=== PATIENT | male | born 1945 | race Caucasian/White ===

== ENCOUNTER 2019-12-31 22:09 | Emergency (ER) | payer OTHER ==
[2019-12-31 22:50] LABS: Absolute Lymphocytes (CBC) 2.5 K/uL (0.7-4.9); Basophils % 0.7 % (0-1.3); Hematocrit 46.9 % (39.6-49.0); Lymphocytes % 21.8 % (15.3-44.8); MPV 7.6 fL (7.6-11.3); RBC Red Blood Cell Count 5.14 M/uL (4.33-5.43)
[2019-12-31] MEDS ORDERED: FAMOTIDINE 20 MG/2 ML VIAL IV ONE (22:58)
[2019-12-31 23:08] LABS: Albumin 3.8 g/dL (3.4-5.0); Bilirubin Direct 0.2 mg/dL (0-0.2); Bilirubin Total 0.7 mg/dL (0.2-1.0); Protein, Total 7.7 g/dL (6.4-8.2)
[2019-12-31] MEDS ORDERED: MORPHINE 2 MG/ML SYR ONE (23:17)
[2019-12-31] MEDS ORDERED: ONDANSETRON 4 MG/2 ML VIAL ONE (23:17)
--- NOTE | 2020-01-01 01:17 | EDPHYS ---
Physician Documentation [facility] Name: Peewee Real Age: 74 yrs Sex: Male : 1945 Arrival Date: 12/31/2019 Time: 22:13 Bed 6 Private MD: Bo Morris ED Physician Slim Ng HPI: 12/30 22:43 This 74 yrs old Male presents to ER via Ambulatory with complaints of mh7 Abdominal Pain. 22:43 The patient presents with abdominal pain in the upper abdomen. Onset: The mh7 symptoms/episode began/occurred yesterday. The symptoms do not radiate. Associated signs and symptoms: Pertinent positives: nausea and vomiting, Pertinent negatives: anorexia, blood in stools, chest pain, constipation, diarrhea, dysuria, fever, headache, hematuria, palpitations, shortness of breath, testicular pain, vomiting blood. The symptoms are described as intermittent, vague, waxing/waning. Modifying factors: The symptoms are alleviated by nothing, the symptoms are aggravated by nothing. Severity of pain: At its worst the pain was moderate today, in the emergency department the pain has improved moderately. Historical: - Allergies: 22:23 No Known Allergies; jd3 - Home Meds: 22:23 Lisinopril Oral [Active]; atorvastatin oral oral [Active]; jd3 - PMHx: 22:23 Hypertension; jd3 - PSHx: 22:23 None; jd3 - Immunization history:: Adult Immunizations up to date. - Social history:: Smoking status: Patient/guardian denies using tobacco, but has a distant history of tobacco abuse. ROS: 22:43 Constitutional: Negative for fever, chills, and weight loss, Eyes: Negative for injury, mh7 pain, redness, and discharge, ENT: Negative for injury, pain, and discharge, Neck: Negative for injury, pain, and swelling, Cardiovascular: Negative for chest pain, palpitations, and edema, Respiratory: Negative for shortness of breath, cough, wheezing, and pleuritic chest pain, Back: Negative for injury and pain, : Negative for injury, bleeding, discharge, and swelling, MS/Extremity: Negative for injury and deformity, Skin: Negative for injury, rash, and discoloration, Neuro: Negative for headache, weakness, numbness, tingling, and seizure, Psych: Negative for depression, anxiety, suicide ideation, homicidal ideation, and hallucinations, Allergy/Immunology: Negative for hives, rash, and allergies, Endocrine: Negative for neck swelling, polydipsia, polyuria, polyphagia, and marked weight changes, Hematologic/Lymphatic: Negative for swollen nodes, abnormal bleeding, and unusual bruising. Exam: 22:43 Constitutional: This is a well developed, well nourished patient who is awake, alert, mh7 and in no acute distress. Head/Face: Normocephalic, atraumatic. Eyes: Pupils equal round and reactive to light, extra-ocular motions intact. Lids and lashes normal. Conjunctiva and sclera are non-icteric and not injected. Cornea within normal limits. Periorbital areas with no swelling, redness, or edema. Neck: Trachea midline, no thyromegaly or masses palpated, and no cervical lymphadenopathy. Supple, full range of motion without nuchal rigidity, or vertebral point tenderness. No Meningismus. Chest/axilla: Normal chest wall appearance and motion. Nontender with no deformity. No lesions are appreciated. Cardiovascular: Regular rate and rhythm with a normal S1 and S2. No gallops, murmurs, or rubs. Normal PMI, no JVD. No pulse deficits. Respiratory: Lungs have equal breath sounds bilaterally, clear to auscultation and percussion. No rales, rhonchi or wheezes noted. No increased work of breathing, no retractions or nasal flaring. 22:43 Back: No spinal tenderness. No costovertebral tenderness. Full range of motion. Skin: Warm, dry with normal turgor. Normal color with no rashes, no lesions, and no evidence of cellulitis. MS/ Extremity: Pulses equal, no cyanosis. Neurovascular intact. Full, normal range of motion. Neuro: Awake and alert, GCS 15, oriented to person, place, time, and situation. Cranial nerves II-XII grossly intact. Motor strength 5/5 in all extremities. Sensory grossly intact. Cerebellar exam normal. Normal gait. Psych: Awake, alert, with orientation to person, place and time. Behavior, mood, and affect are within normal limits. 22:43 Abdomen/GI: Inspection: abdomen appears normal, obese Bowel sounds: normal, in all quadrants, Palpation: mild abdominal tenderness, in the umbilical area, Rectal exam: the exam is deferred, because of patient request, Indicators: McBurney's point is not tender, Francis's sign is negative, Rovsing's sign is negative, Obturator sign is negative, Psoas sign is negative, Liver: no appreciated palpable abnormalities, Hernia: not appreciated. Vital Signs: 22:23 BP 145 / 80; Pulse 60; Resp 16 S; Temp 97.6(TE); Pulse Ox 99% on R/A; Weight 88.45 kg jd3 (R); Height 6 ft. 0 in. (182.88 cm) (R); Pain 6/10; 22:38 BP 143 / 72; Pulse 57; Resp 18; Pulse Ox 98% ; ea 23:43 BP 128 / 65; Pulse 56; Resp 16; Pulse Ox 97% on R/A; ll2 12/31 00:44 BP 112 / 67; Pulse 53; Resp 18; Pulse Ox 97% on R/A; ll2 12/30 22:23 Body Mass Index 26.45 (88.45 kg, 182.88 cm) jd3 MDM: 12/30 22:36 Patient medically screened. 7 12/31 01:14 Differential diagnosis: AAA, appendicitis, bowel obstruction, cholecystitis, 7 Cholelithiasis, diverticulitis, gastritis, gastroesophageal reflux disease, non-specific abd pain, pancreatitis, Peptic Ulcer Disease, Ureterolithiasis, urinary tract infection. Data reviewed: vital signs, nurses notes, lab test result(s), CBC, electrolytes, urinalysis, EKG, radiologic studies, CT scan. Data interpreted: Pulse oximetry: on room air is 97 %. Interpretation: normal. Counseling: I had a detailed discussion with the patient and/or guardian regarding: the historical points, exam findings, and any diagnostic results supporting the discharge/admit diagnosis, lab results, radiology results, the need for outpatient follow up, to return to the emergency department if symptoms worsen or persist or if there are any questions or concerns that arise at home. Response to treatment: the patient's symptoms have resolved after treatment, the patient's blood pressure is in an acceptable range, mental status has returned to baseline, the patient no longer shows bradycardia, the patient is not short of breath, the patient is not tachycardic, the patient's pain is gone, the patient's temperature has normalized, the patient is now symptom free, patient is well hydrated. 12/30 22:36 Order name: Basic Metabolic Panel; Complete Time: 23:34 7 12/30 22:36 Order name: CBC with Diff; Complete Time: 23:34 7 12/30 22:36 Order name: Hepatic Function; Complete Time: 23:34 7 12/30 22:36 Order name: Lipase; Complete Time: 23:34 [facility] 12/30 22:48 Order name: CT Abd/Pelvis - IV Contrast Only [facility] 12/31 00:58 Order name: Urine Dipstick--Ancillary (enter results) tt3 12/30 22:36 Order name: IV Saline Lock; Complete Time: 23:13 7 12/30 22:36 Order name: Labs collected and sent; Complete Time: 23:04 7 12/30 22:36 Order name: Urine Dipstick-Ancillary (obtain specimen); Complete Time: 00:58 [facility] 12/30 22:36 Order name: EKG - Nurse/Tech; Complete Time: 22:57 mh7 Administered Medications: 12/30 22:48 Drug: Pepcid 20 mg Route: IVP; Site: right antecubital; ll2 12/31 00:38 Follow up: Response: No adverse reaction; Pain is decreased ll2 01:25 Not Given (Patient Refused): morphine 2 mg IVP once; (PAIN>8) RASS on ADMN: Combtv4, ll2 Very Agttd3, Agttd2, Rstlss1, AlertClm0, Drwsy-1, LtSdtn-2, ModSdtn-3, DpSdtn-4, UnArsble-5 x2 01:25 Not Given (Patient Refused): Zofran (Ondansetron) 4 mg IVP once; over 2 minutes ll2 Disposition: 01/01/20 01:17 Discharged to Home. Impression: Abdominal Pain, Diverticulosis. - Condition is Stable. - Discharge Instructions: Diverticulosis, Abdominal Pain, Adult, [id number]. - Prescriptions for Zofran ODT 4 mg Oral tablet,disintegrating - place 1 tablet by TRANSLINGUAL route every 8 hours As needed; 6 tablet. Bentyl 20 mg Oral Tablet - take 1 tablet by ORAL route every 6 hours As needed; 20 tablet. Pepcid 20 mg Oral Tablet - take 1 tablet by ORAL route every 12 hours for 5 days; 10 tablet. - Medication Reconciliation Form, Thank You Letter, Antibiotic Education, Prescription Opioid Use form. - Follow up: Private Physician; When: 1 - 2 days; Reason: Worsening of condition, Recheck today's complaints, Continuance of care, Re-evaluation by your physician. - Problem is new. - Symptoms are resolved. Signatures: Dispatcher [employer] Patrick Harris RN RN jd3 Silva Lauren RN RN ll2 Slim Ng MD MD mh7 Corrections: (The following items were deleted from the chart) 01:27 01:17 01/01/2020 01:17 Discharged to Home. Impression: Abdominal Pain; Diverticulosis. ll2 Condition is Stable. Forms are Medication Reconciliation Form, Thank You Letter, Antibiotic Education, Prescription Opioid Use. Follow up: Private Physician; When: 1 - 2 days; Reason: Worsening of condition, Recheck today's complaints, Continuance of care, Re-evaluation by your physician. Problem is new. Symptoms are resolved. mh7
--- NOTE | 2020-01-01 01:17 | ER ---
Nurse's Notes [facility] Name: Peewee Real Age: 74 yrs Sex: Male : 1945 Arrival Date: 12/31/2019 Time: 22:13 Bed 6 Private MD: Bo Morris Diagnosis: Abdominal Pain;Diverticulosis Presentation: 12/30 22:19 Chief complaint: Patient states: "I am having this chest pain that is on and off that jd3 started this evening. I am also have a little bit of nausea and vomiting. I called EMS earlier today, but before they got to my house the pain had gone away. but it has come back and it did not quite go away like it did last time.". Coronavirus screen: At this time, the client does not indicate any symptoms associated with coronavirus-19. Ebola Screen: Patient negative for fever greater than or equal to 101.5 degrees Fahrenheit, and additional compatible Ebola Virus Disease symptoms. Initial Sepsis Screen: Does the patient meet any 2 criteria? No. Patient's initial sepsis screen is negative. Does the patient have a suspected source of infection? No. Patient's initial sepsis screen is negative. Risk Assessment: Do you want to hurt yourself or someone else? Patient reports no desire to harm self or others. Onset of symptoms was December 31, 2019. 22:19 Method Of Arrival: Ambulatory j 22:19 Acuity: MARYCHUY 3 jd3 Historical: - Allergies: 22:23 No Known Allergies; jd3 - Home Meds: 22:23 Lisinopril Oral [Active]; atorvastatin oral oral [Active]; jd3 - PMHx: 22:23 Hypertension; jd3 - PSHx: 22:23 None; jd3 - Immunization history:: Adult Immunizations up to date. - Social history:: Smoking status: Patient/guardian denies using tobacco, but has a distant history of tobacco abuse. Screenin:01 Abuse screen: Denies threats or abuse. Nutritional screening: No deficits noted. ll2 Tuberculosis screening: No symptoms or risk factors identified. Fall Risk IV access (20 points). Total Hare Fall Scale indicates No Risk (0-24 pts). Assessment: 22:57 General: Appears in no apparent distress. Behavior is calm, cooperative, appropriate ll2 for age. Pain: Complains of pain in epigastric area. Neuro: Level of Consciousness is awake, alert, obeys commands, Oriented to person, place, time, situation. Cardiovascular: Capillary refill < 3 seconds Patient's skin is warm and dry. Respiratory: Airway is patent Respiratory effort is even, unlabored, Respiratory pattern is regular, symmetrical. GI: Bowel sounds present X 4 quads. Abd is soft Abdomen is tender to palpation. : No signs and/or symptoms were reported regarding the genitourinary system. EENT: No signs and/or symptoms were reported regarding the EENT system. Derm: Skin is intact, is healthy with good turgor, Skin is dry, Skin is pink, warm \\T\\ dry. Skin temperature is warm. Musculoskeletal: Circulation, motion, and sensation intact. Range of motion: intact in all extremities. 23:14 Reassessment: pt declined meds at this time, stated the pepcid helped control his pain ll2 at this time. 12/31 00:08 Reassessment: Patient and/or family updated on plan of care and expected duration. Pain ll2 level reassessed. Patient is alert, oriented x 3, equal unlabored respirations, skin warm/dry/pink. 00:44 Reassessment: Patient and/or family updated on plan of care and expected duration. Pain ll2 level reassessed. Patient is alert, oriented x 3, equal unlabored respirations, skin warm/dry/pink. Vital Signs: 12/30 22:23 BP 145 / 80; Pulse 60; Resp 16 S; Temp 97.6(TE); Pulse Ox 99% on R/A; Weight 88.45 kg jd3 (R); Height 6 ft. 0 in. (182.88 cm) (R); Pain 6/10; 22:38 BP 143 / 72; Pulse 57; Resp 18; Pulse Ox 98% ; ea 23:43 BP 128 / 65; Pulse 56; Resp 16; Pulse Ox 97% on R/A; ll2 12/31 00:44 BP 112 / 67; Pulse 53; Resp 18; Pulse Ox 97% on R/A; ll2 12/30 22:23 Body Mass Index 26.45 (88.45 kg, 182.88 cm) jd3 ED Course: 12/30 22:13 Patient arrived in ED. am2 22:13 Bo Morris MD is Private Physician. am2 22:15 Silva Lauren, RN is Primary Nurse. ll2 22:17 Slim Ng MD is Attending Physician. 7 22:21 Triage completed. jd3 22:24 Arm band placed on. jd3 22:50 Inserted saline lock: 20 gauge in right antecubital area, using aseptic technique. ds4 Blood collected. 23:01 Patient has correct armband on for positive identification. Placed in gown. Call light ll2 in reach. Side rails up X 1. 23:56 CT Abd/Pelvis - IV Contrast Only In Process Unspecified. EDMS 12/31 01:26 No provider procedures requiring assistance completed. IV discontinued, intact, ll2 bleeding controlled, No redness/swelling at site. Pressure dressing applied. Administered Medications: 12/30 22:48 Drug: Pepcid 20 mg Route: IVP; Site: right antecubital; ll2 12/31 00:38 Follow up: Response: No adverse reaction; Pain is decreased 2 01:25 Not Given (Patient Refused): morphine 2 mg IVP once; (PAIN>8) RASS on ADMN: Combtv4, ll2 Very Agttd3, Agttd2, Rstlss1, AlertClm0, Drwsy-1, LtSdtn-2, ModSdtn-3, DpSdtn-4, UnArsble-5 x2 01:25 Not Given (Patient Refused): Zofran (Ondansetron) 4 mg IVP once; over 2 minutes ll2 Outcome: 01:17 Discharge ordered by . [facility] 01:25 Discharged to home ambulatory. ll2 01:25 Condition: stable 01:25 Discharge instructions given to patient, Instructed on discharge instructions, follow up and referral plans. medication usage, Demonstrated understanding of instructions, follow-up care, medications, Prescriptions given X 3. 01:27 Patient left the ED. ll2 Signatures: Dispatcher [employer] EDSC Sami Whitfield ds4 Gunjan Monique am2 Marlys Winter, RN Patrick Han ea, RN RN jd3 Linscombe, Lacie, DO RN ll2 Slim Ng MD MD [facility]
[2020-01-01 01:27] LABS: Urine Blood NEGATIVE (NEG); Urine Glucose NEGATIVE (NEG); Urine Protein NEGATIVE (NEG); Urine Specific Gravity 1.015 (1.005-1.030); Urine pH 6.5 (5.0-7.0)
[2020-01-01 01:37] VITALS: TEMP 97.6
[2020-01-01 01:40] VITALS: O2SAT 97
[2020-01-01 01:41] VITALS: BP 112/67
--- NOTE | 2020-01-01 10:13 | RAD REPORT ---
EXAM DESCRIPTION: Abdomen Pelvis W Contrast CLINICAL HISTORY: ABD PAIN COMPARISON: None. TECHNIQUE: CT ABDOMEN PELVIS WITH IV CONTRAST on 12/31/2019 10:48 PM DIRECTOR OF CORPORATE STRATEGY This exam was performed according to our departmental dose-optimization program, which includes autom ated exposure control, adjustment of the mA and/or kV according to patient size and/or use of iterati ve reconstruction technique. FINDINGS: Lower lungs are clear. Abdomen: The liver is normal in appearance. There is no biliary dilatation. Gallbladder is normal in appearance. The pancreas and spleen are normal in appearance. The adrenal glands and kidneys are unre markable. Abdominal aorta is normal in course and caliber without aneurysm. There is no free air. There is no r etroperitoneal adenopathy. Pelvis: There is moderate distal colonic diverticulosis. Urinary bladder is unremarkable. There is no free fluid. Appendix is normal. There are small fat-containing inguinal hernias. Skeleton: There are no acute osseous findings. No suspicious bony lesions. IMPRESSION: No acute process. Electronically signed by: Jack Torres MD 01/01/2020 12:03 AM DIRECTOR OF CORPORATE STRATEGY Due to temporary technical issues with the PACS/Fluency reporting system, reports are being signed by the in house radiologist without review as a courtesy to ensure prompt reporting. The interpreting r adiologist is fully responsible for the content of the report.
== END 2020-01-01 01:27 | disposition home or self-care (01) ==
LOC: ER 22:09
DX: K57.90 Diverticulosis of intestine, part unspecified, without perforation or abscess without bleeding (principal); I10 Essential (primary) hypertension
CPT/HCPCS: 93005; 85025; 80048; 36415; 80076; 81003; 83690; 74177; 96374; 99284; Q9967; J2405; J2270

== ENCOUNTER 2021-11-16 10:50 | Observation (INO) | payer OTHER ==
[2021-11-16 11:26] LABS: Absolute Lymphocytes (CBC) 2.5 K/uL (0.7-4.9); Hematocrit 47.8 % (39.6-49.0); Lymphocytes % 17.7 % (15.3-44.8); MCV 93.3 fL (80-100); MPV 7.6 fL (7.6-11.3); RBC Red Blood Cell Count 5.13 M/uL (4.33-5.43)
--- NOTE | 2021-11-16 11:32 | RAD REPORT ---
EXAM DESCRIPTION: RAD - Chest Single View - 11/16/2021 11:22 am CLINICAL HISTORY: generalized weakness TECHNIQUE: AP portable chest image was obtained 11/16/2021 11:22 am . FINDINGS: Lungs are clear. Heart and vasculature are normal. No measurable pleural effusion and no p neumothorax. No acute bony abnormality seen. No acute aortic findings suspected. IMPRESSION: No acute cardiopulmonary process.
[2021-11-16 11:36] LABS: Potassium 3.9 mmol/L (3.5-5.1); Troponin High Sensitivity 5.3 pg/mL (<58.9)
--- NOTE | 2021-11-16 11:45 | EDPHYS ---
Physician Documentation [facility] Name: Peewee Real Age: 76 yrs Sex: Male : 1945 Arrival Date: 11/16/2021 Time: 10:52 Bed 8 Private MD: ED Physician Sid Rhoades HPI: 11/16 10:56 This 76 yrs old Male presents to ER via Unassigned with complaints of Heat Exposure, ms3 Near Syncope. 10:56 76-year-old male with past medical history of hypertension and thyroid disease presents ms3 via [facility] after playing golf since 8 AM and not having breakfast and having a near syncopal episode. Patient states he became lightheaded weak and bystander states he may have passed out once he was sat in the golf cart. Patient denies pain. Patient denies alleviating or inciting factors.. Historical: - Allergies: 11:00 No Known Allergies; vg1 - Home Meds: 11:00 lisinopril Oral [Active]; vg1 - PMHx: 11:00 Hypertension; vg1 - Immunization history:: Client reports receiving the 2nd dose of the Covid vaccine. - Social history:: Smoking status: Patient denies any tobacco usage or history of. ROS: 10:56 Constitutional: Negative for fever, and chills. Eyes: Negative for injury, pain, ms3 redness, and discharge, Neck: Negative for injury, pain, and swelling, Cardiovascular: Negative for chest pain, and palpitations. Respiratory: Negative for shortness of breath, cough, wheezing, and pleuritic chest pain, Abdomen/GI: Negative for abdominal pain, nausea, vomiting, diarrhea, and constipation, MS/Extremity: Negative for injury and deformity. 10:56 Skin: Positive for diaphoresis. 10:56 Neuro: Positive for weakness. 10:56 All other systems are negative. Exam: 10:53 ECG was reviewed by the Attending Physician. ms3 10:56 Constitutional: This is a well developed, well nourished patient who is awake, alert, ms3 and in no acute distress. Head/Face: Normocephalic, atraumatic. Neck: Trachea midline, no cervical lymphadenopathy. Supple, full range of motion without nuchal rigidity, or vertebral point tenderness. No Meningismus. Chest/axilla: Normal chest wall appearance and motion. Nontender with no deformity. Cardiovascular: Regular rate and rhythm with a normal S1 and S2. No gallops, murmurs, or rubs. Normal PMI, no JVD. No pulse deficits. Respiratory: Lungs have equal breath sounds bilaterally, clear to auscultation and percussion. No rales, rhonchi or wheezes noted. No increased work of breathing, no retractions or nasal flaring. Abdomen/GI: Soft, non-tender, with normal bowel sounds. No distension or tympany. No guarding or rebound. No evidence of tenderness throughout. 10:56 Skin: Appearance: Moisture: diaphoretic. Vital Signs: 10:49 BP 116 / 57; Pulse 63; Resp 12; Temp 97.8(O); Pulse Ox 96% on R/A; Weight 88.45 kg; vg1 Height 6 ft. 0 in. (182.88 cm); Pain 0/10; 11:56 BP 106 / 58; Pulse 61; Resp 15; Pulse Ox 95% ; jl7 12:30 BP 104 / 62; Pulse 68; Resp 16; Pulse Ox 97% ; jl7 13:19 BP 97 / 66; Pulse 62; Resp 15; Pulse Ox 100% ; jl7 14:30 BP 110 / 62; Pulse 66; Resp 14; Pulse Ox 93% ; jl7 15:30 BP 117 / 65; Pulse 55; Resp 15; Pulse Ox 97% ; jl7 10:49 Body Mass Index 26.45 (88.45 kg, 182.88 cm) vg1 MDM: 10:54 Patient medically screened. ms3 10:56 Differential Diagnosis: idiopathic syncope, Heat Exhaustion vs Hyperkalemia. ms3 12:02 Data reviewed: vital signs, nurses notes, lab test result(s), EKG, radiologic studies, ms3 and as a result, I will admit patient. Data interpreted: traffic monitor specialist: rate is 62 beats/min, rhythm is normal sinus rhythm, with no ectopy, Interpretation: normal rate, normal rhythm. ED course: Discussed need for observation with patient and his family. They understand agree with plan. Patient remains in stable condition. Discussed case with Dr. Napier and he accepts patient.. 11/16 11:02 Order name: Basic Metabolic Panel; Complete Time: 11:37 ms3 11/16 11:02 Order name: CBC with Diff; Complete Time: 11:37 ms3 11/16 11:02 Order name: Troponin HS; Complete Time: 11:37 ms3 11/16 12:05 Order name: SARS RAPID ms3 11/16 12:15 Order name: CBC with Automated Diff EDMS 11/16 12:15 Order name: CBC with Automated Diff EDMS 11/16 11:02 Order name: XRAY Chest (1 view); Complete Time: 11:37 ms3 11/16 11:02 Order name: EKG; Complete Time: 11:03 ms3 11/16 12:15 Order name: Comprehensive Metabolic Panel EDMS 11/16 12:15 Order name: Comprehensive Metabolic Panel EDMS 11/16 12:15 Order name: Renal Ultrasound-Complete EDMS 11/16 12:15 Order name: UR SODIUM EDMS 11/16 12:15 Order name: Urinalysis EDMS 11/16 11:02 Order name: Cardiac monitoring; Complete Time: 11:05 ms3 11/16 11:02 Order name: EKG - Nurse/Tech; Complete Time: 11:05 ms3 11/16 11:02 Order name: IV Saline Lock; Complete Time: 11:05 ms3 11/16 11:02 Order name: Labs collected and sent; Complete Time: 11:05 ms3 11/16 11:02 Order name: O2 Per Protocol; Complete Time: 11:05 ms3 11/16 11:02 Order name: O2 Sat Monitoring; Complete Time: 11:05 ms3 EC:53 Rate is 62 beats/min. Rhythm is regular. QRS [place] is Normal. [place] interval is normal. QRS ms3 interval is normal. QT interval is normal. Clinical impression: Normal ECG. Interpreted by me. Reviewed by me. Administered Medications: 11:56 Drug: NS 0.9% 500 ml Route: IV; Rate: 1000 ml; Site: right antecubital; jl7 13:00 Follow up: Response: No adverse reaction; IV Status: Completed infusion; IV Intake: jl7 500ml Disposition Summary: 11/16/21 11:45 Hospitalization Ordered Hospitalization Status: Observation ms3 Provider: Jose Armstrong ms3 Location: Telemetry/MedSurg (observation) ms3 Condition: Stable ms3 Problem: new ms3 Symptoms: are unchanged ms3 Bed/Room Type: Standard ms3 Room Assignment: 205(11/16/21 15:14) eb Diagnosis - Syncope ms3 - Generalized weakness ms3 - Renal Insufficiency ms3 Forms: - Medication Reconciliation Form ms3 - SBAR form ms3 Signatures: Dispatcher [employer] Blanche Fernando RN RN jl7 Gissell Carver Victoria, RN RN vg1 Sid Rhoades DO DO ms3 Corrections: (The following items were deleted from the chart) 14:44 11:45 ms3 eb 15:14 14:44 211 eb
--- NOTE | 2021-11-16 11:45 | ER ---
Nurse's Notes [facility] Name: Peewee Real Age: 76 yrs Sex: Male : 1945 Arrival Date: 11/16/2021 Time: 10:52 Bed 8 Private MD: Diagnosis: Syncope;Generalized weakness;Renal Insufficiency Presentation: 11/16 10:49 Chief complaint: EMS states: Pt has been out playing golf since this morning around vg1 0800, stated had "some water" and did not have any breakfast; pt stated became lightheaded, nauseated, and weak; by standards helped pt sit down, unsure of LOC. Pt denies CP, SOB, or pain. Pt appears to be diaphoretic. 10:49 Coronavirus screen: Vaccine status: Patient reports receiving the 2nd dose of the covid vg1 vaccine. Client denies travel out of the [place] in the last 14 days. Ebola Screen: Patient denies exposure to infectious person. Patient denies travel to an Ebola-affected area in the 21 days before illness onset. Initial Sepsis Screen: Does the patient meet any 2 criteria? No. Patient's initial sepsis screen is negative. Does the patient have a suspected source of infection? No. Patient's initial sepsis screen is negative. Risk Assessment: Do you want to hurt yourself or someone else? Patient reports no desire to harm self or others. Onset of symptoms was November 16, 2021. 10:49 Method Of Arrival: EMS: [facility] 10:49 Acuity: MARYCHUY 2 vg1 Triage Assessment: 10:49 General: Appears uncomfortable, Behavior is cooperative, drowsy. Pain: Denies pain. vg1 Cardiovascular: Chest pain is denied. Respiratory: Airway is patent Respiratory effort is even, unlabored. Derm: Skin is diaphoretic, Skin is pink. Historical: - Allergies: 11:00 No Known Allergies; vg1 - Home Meds: 11:00 lisinopril Oral [Active]; vg1 - PMHx: 11:00 Hypertension; vg1 - Immunization history:: Client reports receiving the 2nd dose of the Covid vaccine. - Social history:: Smoking status: Patient denies any tobacco usage or history of. Screenin:56 Abuse screen: Denies threats or abuse. Denies injuries from another. Nutritional jl7 screening: No deficits noted. Tuberculosis screening: No symptoms or risk factors identified. Fall Risk IV access (20 points). Total Hare Fall Scale indicates No Risk (0-24 pts). Assessment: 11:08 General: Appears distressed, uncomfortable, ill, Behavior is cooperative, appropriate jl7 for age, drowsy. Pain: Denies pain. Neuro: Larose Agitation-Sedation Scale (RASS): -1 Drowsy Level of Consciousness is awake, obeys commands, listless, Oriented to person, place, time, situation, Credit Interviewer are equal bilaterally Speech is normal, Facial symmetry appears normal, Reports "I got dizzy and lightheaded and weak.". Cardiovascular: Heart tones present Patient's skin is warm and dry. Rhythm is sinus rhythm. Respiratory: Airway is patent Respiratory effort is even, unlabored, Respiratory pattern is regular, symmetrical. GI: Reports nausea. Derm: Skin is diaphoretic, Skin is normal, Skin temperature is warm. 11:56 Reassessment: Patient appears in no apparent distress at this time. Patient and/or jl7 family updated on plan of care and expected duration. Pain level reassessed. Patient is alert, oriented x 3, equal unlabored respirations, skin warm/dry/pink. Patient states feeling better. Patient states symptoms have improved. 12:10 Reassessment: Dr. Armstrong at bedside for admission. jl7 13:21 Reassessment: Patient appears in no apparent distress at this time. No changes from jl7 previously documented assessment. Patient and/or family updated on plan of care and expected duration. Pain level reassessed. Patient is alert, oriented x 3, equal unlabored respirations, skin warm/dry/pink. 14:30 Reassessment: Patient appears in no apparent distress at this time. No changes from jl7 previously documented assessment. Patient and/or family updated on plan of care and expected duration. Pain level reassessed. Patient is alert, oriented x 3, equal unlabored respirations, skin warm/dry/pink. 15:30 Reassessment: Patient appears in no apparent distress at this time. No changes from jl7 previously documented assessment. Patient and/or family updated on plan of care and expected duration. Pain level reassessed. Patient is alert, oriented x 3, equal unlabored respirations, skin warm/dry/pink. Vital Signs: 10:49 BP 116 / 57; Pulse 63; Resp 12; Temp 97.8(O); Pulse Ox 96% on R/A; Weight 88.45 kg; vg1 Height 6 ft. 0 in. (182.88 cm); Pain 0/10; 11:56 BP 106 / 58; Pulse 61; Resp 15; Pulse Ox 95% ; jl7 12:30 BP 104 / 62; Pulse 68; Resp 16; Pulse Ox 97% ; jl7 13:19 BP 97 / 66; Pulse 62; Resp 15; Pulse Ox 100% ; jl7 14:30 BP 110 / 62; Pulse 66; Resp 14; Pulse Ox 93% ; jl7 15:30 BP 117 / 65; Pulse 55; Resp 15; Pulse Ox 97% ; jl7 10:49 Body Mass Index 26.45 (88.45 kg, 182.88 cm) vg1 ED Course: 10:45 Inserted saline lock: 20 gauge in right antecubital area, using aseptic technique. tp1 Blood collected. 10:49 Arm band placed on. vg1 10:50 Patient has correct armband on for positive identification. Placed in gown. Bed in low jl7 position. Call light in reach. Side rails up X2. Client placed on continuous cardiac and pulse oximetry monitoring. NIBP monitoring applied. 10:50 Warm blanket given. jl7 10:52 Patient arrived in ED. eb 10:54 Sid Rhoades DO is Attending Physician. ms3 11:00 Triage completed. vg1 11:00 Initial lab(s) drawn, by ct, sent to lab. EKG done, by ED staff, reviewed by Sid Rhoades DO. 11:05 Blanche Kiser RN is Primary Nurse. jl7 11:24 XRAY Chest (1 view) In Process Unspecified. EDMS 11:44 Jose Armstrong MD is Hospitalizing Provider. ms3 14:30 No provider procedures requiring assistance completed. Patient admitted, IV remains in jl7 place. intact, No redness/swelling at site. Administered Medications: 11:56 Drug: NS 0.9% 500 ml Route: IV; Rate: 1000 ml; Site: right antecubital; jl7 13:00 Follow up: Response: No adverse reaction; IV Status: Completed infusion; IV Intake: jl7 500ml Medication: 11:56 VIS not applicable for this client. jl7 Intake: 13:00 IV: 500ml; Total: 500ml. jl7 Outcome: 11:45 Decision to Hospitalize by Provider. ms3 15:58 Admitted to Med/surg accompanied by tech, via wheelchair, room 419, with chart, Report jl7 called to DO Louise 15:58 Condition: stable 15:58 Discharge instructions given to patient, family, Instructed on the need for admit, Demonstrated understanding of instructions. 15:58 Patient left the ED. jlDaisy Signatures: Dispatcher [employer] EDBlanche Theodore, RN RN jl7 Gissell Carver Victoria, RN RN vg1 Sid Rhoades, DO ms3 Christina Sullivan, RN RN tp1
[2021-11-16] MEDS ORDERED: NA CHLORIDE 0.9% 500 ML ONE (11:58)
--- NOTE | 2021-11-16 12:24 | P.HP ---
Certification for Inpatient Patient admitted to: Observation With expected LOS: <2 Midnights Practitioner: I am a practitioner with admitting privileges, knowledge of patient current condition, hospital course, and medical plan of care. Services: Services provided to patient in accordance with Admission requirements found in Title 42 Section 412.3 of the Code of Federal Regulations Patient History Date of Service: 11/16/21 Reason for admission: Weakness and diaphoretic History of Present Illness: Patient is 76 years of age with a history of hypertension was playing golf [place] became very weak diaphoretic this is the first episode he is ever heard he denies any chest pain shortness of breath weakness of extremity came here to the hospital found to have renal failure patient informed me that his nurse practitioner is mention that he may have underlying renal insufficiency follows up at the [place] [facility] with his lisinopril - Past Medical/Surgical History -: Hypertension Past Surgical History: Patient denies surgical history - Social History Smoking Status: Never smoker Review of Systems 10-point ROS is otherwise unremarkable Physical Examination - Vital Signs Temperature: 97.8 F Blood Pressure: 116/57 Pulse: 63 Respirations: 12 Pulse Ox (%): 96 - Physical Exam General: Alert HEENT: Atraumatic Neck: Supple Respiratory: Clear to auscultation bilaterally Cardiovascular: No edema, Regular rate/rhythm Gastrointestinal: Normal bowel sounds, Soft and benign Integumentary: No rashes, No breakdown Neurological: Normal speech, Normal strength at 5/5 x4 extr, Cranial nerves 3-12 intact - Studies Laboratory Data (last 24 hrs) 11/16/21 11:00: WBC 14.10 H, Hgb 15.9, Hct 47.8, Plt Count 251 11/16/21 11:00: Sodium 137, Potassium 3.9, BUN 29 H, Creatinine 1.68 H, Glucose 167 H Assessment and Plan - Problems (Diagnosis) (1) Renal failure Current Visit: Yes Status: Acute Plan: Patient is 76 years of age with a history of hypertension followed up at the [place] takes lisinopril was found this morning went to play golf suddenly became weak diaphoretic and it appeared in the hospital kidney function is abnormal white count is also mildly elevated COVID test is pending plan to admit to the hospital start on IV fluids renal ultrasound avoid lisinopril urinalysis urine sodium Qualifiers: Renal failure chronicity: unspecified chronicity Qualified Code(s): N19 - Unspecified kidney failure - Advance Directives Does patient have a Living Will: No Does patient have a Durable POA for Healthcare: No
[2021-11-16 12:41] LABS: SARS-CoV-2 Antigen Rapid Res Negative (Negative)
[2021-11-16] MEDS ORDERED: ONDANSETRON 4 MG/2 ML VIAL IV PRN (14:31)
--- NOTE | 2021-11-16 14:38 | RAD REPORT ---
EXAM DESCRIPTION: US - Renal Ultrasound-Complete - 11/16/2021 1:52 pm CLINICAL HISTORY: renal failure COMPARISON: <Comparisons>abdomen ultrasound 03/28/2020 FINDINGS: The right kidney measures 9.7 x 5.5 x 4.4 cm. The left kidney measures 9.8 x 6.1 x 5.9 cm . Both kidneys show slight cortical thinning and slight increase in cortical echogenicity. No hydrone phrosis or suspicious renal mass. No bladder wall thickening or mass. No intraluminal stone or mass. IMPRESSION: Cortical thinning and increased cortical echogenicity consistent with underlying medical renal disease. No hydronephrosis or mass of either kidney.
[2021-11-16 16:02] VITALS: BMI 26.4
[2021-11-16] MEDS: NA CHLORIDE 0.9% 1,000 ML IV SCH (16:09)
[2021-11-17] MEDS: NA CHLORIDE 0.9% 1,000 ML IV SCH ×2 (00:50→09:00)
[2021-11-17 01:26] LABS: Specific Gravity 1.012 (1.005-1.030); Urine Bilirubin NEGATIVE (Negative); Urine Blood Negative (Negative); Urine Clarity Clear (Clear); Urine Color Light-Yellow (Yellow); Urine Glucose NEGATIVE (Negative); Urine Mucus Slight /HPF (None Seen); Urine Protein NEGATIVE (Negative); Urine RBC <5 /HPF (None Seen); Urine Urobilinogen Normal (Normal)
[2021-11-17 05:38] LABS: Absolute Lymphocytes (CBC) 1.6 K/uL (0.7-4.9); Hematocrit 42.8 % (39.6-49.0); Lymphocytes % 16.2 % (15.3-44.8); MCV 92.9 fL (80-100); MPV 7.3 fL (7.6-11.3); RBC Red Blood Cell Count 4.61 M/uL (4.33-5.43)
[2021-11-17 05:48] LABS: Albumin 3.5 g/dL (3.4-5.0); Bilirubin Total 0.5 mg/dL (0.2-1.0); Potassium 4.4 mmol/L (3.5-5.1); Protein, Total 6.5 g/dL (6.4-8.2)
[2021-11-17 11:49] VITALS: TEMP 97.2
--- NOTE | 2021-11-17 13:20 | P.DS ---
Admission Date: 11/16/21 Discharge Date: 11/17/21 Disposition: ROUTINE DISCHARGE Discharge Condition: FAIR Reason for Admission: Weakness and diaphoretic - Problems (1) Near syncope Current Visit: Yes Status: Acute (2) Acute renal failure Current Visit: Yes Status: Acute Brief History of Present Illness: Patient is 76 years of age with a history of hypertension was playing golf suddenly became very weak diaphoretic. This was the first episode he is ever heard. He denied any chest pain, shortness of breath, weakness of extremity. Found to have acute renal failure in the ED. Patient denied any nausea or vomiting or diarrhea or any reason for dehydration apart from being in the heat of the sun for several hours. His blood pressure was in the low 100s. Patient has been taking lisinopril for hypertension. He was hospitalized for further management. Hospital Course: Patient placed under observation on the medical floor. Telemetry was unremarkable except for heart rate was as low as 52. Blood pressure was soft but no hypotension. Patient was asymptomatic during the hospital stay. Orthostatic vitals.. Patient blood pressure has been stable. His symptoms could be related to hypotension given the rise in creatinine and soft blood pressure. He was occasionally bradycardic with should warrant further outpatient work-up. Dr. Crawford was informed who will follow up with the patient this week in the office. Vital Signs/Physical Exam: Temp Pulse Resp BP Pulse Ox 97.2 F 62 16 113/64 97 11/17/21 11:48 11/17/21 11:48 11/17/21 11:48 11/17/21 11:48 11/17/21 11:48 General: Alert, In no apparent distress, Oriented x3 HEENT: Mucous membr. moist/pink Neck: Supple, JVD not distended Respiratory: Clear to auscultation bilaterally, Normal air movement Cardiovascular: No edema, Regular rate/rhythm, Normal S1 S2 Capillary refill: <2 Seconds Gastrointestinal: Normal bowel sounds, Soft and benign, Non-distended, No tenderness Musculoskeletal: No swelling Integumentary: No rashes, No cyanosis Neurological: Normal speech, Normal strength at 5/5 x4 extr, Cranial nerves 3-12 intact Laboratory Data at Discharge: WBC 9.80 K/uL (4.3-10.9) 11/17/21 05:20 Hgb 14.6 g/dL (13.6-17.9) D 11/17/21 05:20 Hct 42.8 % (39.6-49.0) 11/17/21 05:20 Plt Count 205 K/uL (152-406) 11/17/21 05:20 Sodium 137 mmol/L (136-145) 11/17/21 05:20 Potassium 4.4 mmol/L (3.5-5.1) 11/17/21 05:20 BUN 24 mg/dL (7-18) H 11/17/21 05:20 Creatinine 1.34 mg/dL (0.55-1.3) H 11/17/21 05:20 Glucose 117 mg/dL (74-106) H 11/17/21 05:20 Total Bilirubin 0.5 mg/dL (0.2-1.0) 11/17/21 05:20 AST 17 U/L (15-37) 11/17/21 05:20 ALT 30 U/L (12-78) 11/17/21 05:20 Alkaline Phosphatase 69 U/L (45-117) 11/17/21 05:20 Home Medications: Atorvastatin Calcium [Lipitor*] 40 mg PO BEDTIME 11/16/21 Diet: AHA Activity: Ad brenton Followup: Cristiano Crawford MD [ACTIVE - CAN ADMIT] - 1-2 Weeks NONE,NONE [Primary Care Provider] -
[2021-11-18 01:39] VITALS: BP 117/65; O2SAT 97
--- NOTE | 2021-11-19 06:42 | EKG ---
Test Date: 2021-11-16 Test Time: 10:53:38 Scenery Builder: PASHA MEASUREMENT RESULTS: Intervals: Rate: 62 MT: 170 QRSD: 80 QT: 414 QTc: 420 [place]: P: 53 MT: 170 QRS: 40 T: 71 INTERPRETIVE STATEMENTS: Normal sinus rhythm Normal ECG Compared to ECG 12/31/2019 23:59:43 Sinus bradycardia no longer present Electronically Signed On 11-19-21 06:32:40 CDT by Cristiano Crawford
== END 2021-11-17 13:46 | disposition home or self-care (01) ==
LOC: ER 10:50 → ERHOLD 12:12 → 2ND 15:43
PROVIDERS: ADMIT Internal Medicine Sleep Medicine; ATTEND Internal Medicine
DX: N17.9 Acute kidney failure, unspecified (principal); R55 Syncope and collapse; I10 Essential (primary) hypertension; Z20.822 Contact with and (suspected) exposure to COVID-19
CPT/HCPCS: 93005; 85025 ×2; 81001; 80048; 36415; 84300; 84484; 80053; 71045; 76770; 96360; 99285; 87811; J7040; J7030 ×2; J2405; G0378 ×3